=== PATIENT | female | born 1935 | race Two or more races ===

== ENCOUNTER 2017-06-29 05:24 | Emergency (ER) | payer SELFPAY ==
[~2017-06-29] VITALS: Ht 152.4 cm; Wt 49.9 kg
[2017-06-29 05:29] VITALS: BP 126/65
== END 2017-06-29 07:45 | disposition left against medical advice (07) ==
LOC: EDBD 05:24 → EDSEX 05:24 → ER 05:26
DX: R25.1 Tremor, unspecified (principal); Z53.21 Procedure and treatment not carried out due to patient leaving prior to being seen by health care provider